=== PATIENT | female | born 1990 | race Caucasian/White ===

== ENCOUNTER 2016-11-01 07:43 | Emergency (ER) | payer OTHER ==
[~2016-11-01] VITALS: Ht 165.1 cm; Wt 72.6 kg
[2016-11-01 07:43] VITALS: BP 126/82; PULSE 87; RESP 18; TEMP 97.2; O2SAT 98
--- NOTE | 2016-11-01 07:43 | NUR ---
BROUGHT IN BY TYRA OWENS AND PLACED IN BED #3, TRIAGED, WILL ASSUME CARE
--- NOTE | 2016-11-01 07:46 | NUR ---
DR PRESTON AT BEDSIDE FOR EVALUATION
--- NOTE | 2016-11-01 08:29 | NUR ---
Patient refused HCG testing, stating "there is no way I'm . I have an IUD in place." Patient signed consent for X-ray without HCG.
--- NOTE | 2016-11-01 08:34 | NUR ---
TAKEN TO RADIOLOGY VIA [facility]
--- NOTE | 2016-11-01 09:21 | NUR ---
RETURNED FROM RADIOLOGY, PLACED BACK TO BED #3
--- NOTE | 2016-11-01 09:32 | NUR ---
DR PRESOTN AT BEDSIDE RE-EVALUATING PT.
--- NOTE | 2016-11-01 09:39 | NUR ---
LILLIAN WRAP APPLIED TO PTS LEFT KNEE. PT CALLING FOR RIDE HOME.
--- NOTE | 2016-11-01 10:01 | NUR ---
AWAITING FRIEND FOR ADULT EDUCATION INSTRUCTOR
[2016-11-01 10:17] VITALS: BP 129/81; PULSE 82; RESP 19; TEMP 97.8; O2SAT 99
--- NOTE | 2016-11-01 10:18 | NUR ---
Patient given written and verbal discharge instructions and verbalizes understanding. ER MD discussed with patient the results and treatment provided. Given copies of tests performed in ER. Patient in stable condition. ID arm band removed. Rx of MOTRIN given. Patient educated on pain management and to follow up with PMD. Pain Scale 0/10. Opportunity for questions provided and answered.
== END 2016-11-01 10:17 | disposition home or self-care (01) ==
LOC: SED 07:43
DX: S86.912A Strain of unspecified muscle(s) and tendon(s) at lower leg level, left leg, initial encounter (principal); F17.200 Nicotine dependence, unspecified, uncomplicated; V49.9XXA Car occupant (driver) (passenger) injured in unspecified traffic accident, initial encounter; Y93.89 Activity, other specified; Y99.8 Other external cause status; Y92.89 Other specified places as the place of occurrence of the external cause
CPT/HCPCS: 72170-TC; 73510-TC; 73552; 73560-TC; 73590-TC; 99284